=== PATIENT | male | born 1980 | race Caucasian/White ===

== ENCOUNTER 2021-10-31 13:00 | Emergency (ER) | payer OTHER ==
[2021-10-31 13:22] VITALS: BP 139/80; PULSE 76; TEMP 98.4; BMI 23.1
== END 2021-10-31 13:50 | disposition home or self-care (01) ==
LOC: JER 13:00 → JERFT 13:00
DX: M25.532 Pain in left wrist (principal)
CPT/HCPCS: 73110-TC-LT-FY; 73130-TC-LT-FY; 99283-25